=== PATIENT | female | born 1940 | race Caucasian/White ===

== ENCOUNTER → 2017-03-11 15:18 | Outpatient (CLI) | payer MEDICARE, BC ==
[2016-09-30 14:01] VITALS: BMI 23.9
[~2017-03-11 15:18] MED LIST: PRAVACHOL20 MG PO; PROTONIX40 MG PO; VITAMIN D10000 UNI1 PO; [UNRECOGNIZED DRUG - REMARK] PO
[2017-03-11 15:38] LABS: BASOPHILS 0.4 % (0-2); HEMATOCRIT 37.3 % (36.0-48.0); HEMOGLOBIN 12.4 g/dL (12-16); IMMATURE GRANULOCYTES 0.2 % (0-5); LYMPHOCYTES 36.8 % (15-50); MCH 29.2 pg (26.0-34.0); MCHC 33.2 g/dL (31.0-37.0); MEAN PLATELET VOLUME 9.8 fL (7.4-10.4); MONOCYTES 13.3 % (2-11); NEUTROPHILS 47.3 % (40-80); PLATELET COUNT 221 10x3/uL (130-400); RBC 4.24 10x6/uL (4.00-5.40); RDW 13.3 % (11.5-14.5); WBC 5.6 10x3/uL (4.8-10.8)
[2017-03-11 15:48] LABS: ANION GAP 8.6 mmol/L (8-16); CALCIUM 8.7 mg/dL (8.5-10.1); CARBON DIOXIDE 32.1 mmol/L (21.0-32.0); CREATININE - SERUM 1.3 mg/dL (0.6-1.3); POTASSIUM - SERUM 3.7 mmol/L (3.5-5.1)
== END | disposition home or self-care (01) ==
LOC: D.LAB 15:18
PROVIDERS: Urology
DX: N30.10 Interstitial cystitis (chronic) without hematuria (principal)

== ENCOUNTER → 2017-04-01 11:52 | Outpatient (CLI) | payer MEDICARE, BC ==
[~2017-04-01] VITALS: Ht 160 cm; Wt 58.6 kg
[~2017-04-01 11:52] MED LIST changes: +CIPRO500 MG PO; +SYNTHROID25 MCG PO
[2017-04-01 13:27] VITALS: BP 141/71; BMI 22.9
[2017-04-01 13:35] VITALS: BP 141/71; Ht 160 cm; Wt 58.6 kg
== END | disposition home or self-care (01) ==
LOC: D.OPS 11:52
DX: M81.0 Age-related osteoporosis without current pathological fracture (principal)

== ENCOUNTER 2017-04-02 05:47 | Day surgery (SDC) | payer MEDICARE, BC ==
[2017-04-01 13:21] LABS: HEMOGLOBIN 13.1 g/dL (12-16); MCH 29.4 pg (26.0-34.0); MCHC 33.6 g/dL (31.0-37.0); MCV 87.6 fL (80.0-100.0); MEAN PLATELET VOLUME 10.1 fL (7.4-10.4); RBC 4.45 10x6/uL (4.00-5.40); WBC 6.5 10x3/uL (4.8-10.8)
[~2017-04-02] VITALS: Ht 160 cm; Wt 59.4 kg
[~2017-04-02 05:47] MED LIST changes: -CIPRO500 MG PO
[2017-04-02] MEDS ORDERED: CIPRO500 MG PO (06:40)
[2017-04-02 06:41] VITALS: BP 178/89; Ht 160 cm; Wt 59.4 kg
--- NOTE | 2017-04-02 08:49 | NUR ---
0840--PT VOIDS WITHOUT DIFFICULTY, IV DC'D. SHONDA PEREA 0850--DISCHARGE INSTRUCTIONS GIVEN, PT VERBALIZES UNDERSTANDING. PT OFF UNIT VIA WC. SHONDA PEREA
--- NOTE | 2017-04-06 12:45 | OP ---
PATIENT NAME: RENEA MALONEY MEDICAL RECORD: [id number] :41 LOCATION:D.OPS ADMISSION DATE: SURGEON: RICARDO DAY MD DATE OF OPERATION: 04/02/2017 SURGEON: Rciardo Day MD ANESTHESIA: MAC by Tee Gonzalez CRNA. PREOPERATIVE DIAGNOSIS: Interstitial cystitis. FINDINGS: Single ureteral orifices bilaterally, no bladder tumors, diffuse bladder inflammation. PROCEDURES: Cystoscopy, intravesical Rimso instillation, Chiasma, lot #[id number]; expiration, October 2018. SPECIMENS: None. ESTIMATED BLOOD LOSS: None. CLINICAL HISTORY: This is a 76-year-old female with symptoms of urinary frequency, suprapubic pain and trigonal tenderness causing dyspareunia. She has tried Myrbetriq, which did not help her urinary frequency. Urine cultures have shown no bacterial growth. She comes now for cystoscopy to check for bladder inflammation. If inflammation is found, she will be started with Rimso, which is an anti-inflammatory. She was given Ancef 1 gram IV sales operations analyst to the OR. DESCRIPTION OF PROCEDURE: The patient was given IV sedation. She was placed in the dorsal lithotomy position and prepped and draped. A 21-Burkinan cystoscope with 30-degree lens was used for visualization. She has single ureteral orifices bilaterally. There are no bladder tumors seen. The bladder is mildly trabeculated and there was quite diffuse inflammation with prominent vascularity throughout. We then drained the bladder through the scope and removed the scope. A 16-Burkinan red rubber catheter was inserted and 50 mL of 50% Rimso solution was instilled into the bladder. The catheter was then removed, leaving the medication in the bladder. The patient will hold the medication for at least 15 minutes and then void it out. She will come back to the office next week to have the second treatment done in the office. TRANSINT:[id number] Voice Confirmation ID: [id number] DOCUMENT ID: [id number] RICARDO DAY MD at 1245 CC: [id number] DICTATION DATE: 04/02/17 0759 UNDERWRITING INTERNSHIP: 04/02/17 1642 [facility] 04/02/17 [place] [address]
== END 2017-04-02 08:45 | disposition home or self-care (01) ==
LOC: D.OPS 05:47 → D.PAN 07:30 → D.OPS 08:45
PROVIDERS: Anesthesiology
DX: N30.10 Interstitial cystitis (chronic) without hematuria (principal)

== ENCOUNTER → 2017-04-22 20:05 | Outpatient (CLI) | payer MEDICARE, BC ==
[2017-04-02 06:41] VITALS: BMI 23.2
[~2017-04-22 20:05] MED LIST changes: +CIPRO500 MG PO
[2017-04-22 20:37] LABS: APPEARANCE CLEAR (CLEAR); BILIRUBIN NEGATIVE (NEGATIVE); COLOR YELLOW (YELLOW); GLUCOSE NEGATIVE (NEGATIVE); KETONE NEGATIVE (NEGATIVE); LEUKOCYTE ESTERASE NEGATIVE (NEGATIVE); NITRITE NEGATIVE (NEGATIVE); PROTEIN NEGATIVE (NEGATIVE); UROBILINOGEN NORMAL (NORMAL)
== END | disposition home or self-care (01) ==
LOC: D.LABREF 20:05
PROVIDERS: Urology
DX: N39.0 Urinary tract infection, site not specified (principal)

== ENCOUNTER → 2017-06-26 17:31 | Outpatient (CLI) | payer MEDICARE, BC ==
[2017-04-02 06:41] VITALS: BMI 23.2
[2017-06-26 19:30] LABS: APPEARANCE CLEAR (CLEAR); BACTERIA FEW /hpf (NONE SEEN); BILIRUBIN NEGATIVE (NEGATIVE); COLOR YELLOW (YELLOW); GLUCOSE NEGATIVE (NEGATIVE); KETONE NEGATIVE (NEGATIVE); LEUKOCYTE ESTERASE TRACE (NEGATIVE); NITRITE NEGATIVE (NEGATIVE); PROTEIN NEGATIVE (NEGATIVE); RED CELLS - URINE OCC /hpf (0-5); UROBILINOGEN NORMAL (NORMAL); WHITE CELLS - URINE 0-5 /hpf (0-5)
== END | disposition home or self-care (01) ==
LOC: D.LABREF 17:31
PROVIDERS: Urology
DX: N39.0 Urinary tract infection, site not specified (principal)

== ENCOUNTER → 2017-08-14 19:54 | Outpatient (CLI) | payer MEDICARE, BC ==
[2017-04-02 06:41] VITALS: BMI 23.2
== END | disposition home or self-care (01) ==
LOC: D.LABREF 19:54
DX: N39.0 Urinary tract infection, site not specified (principal)

== ENCOUNTER → 2017-09-22 15:00 | Outpatient (CLI) | payer MEDICARE, BC ==
[2017-04-02 06:41] VITALS: BMI 23.2
== END | disposition home or self-care (01) ==
LOC: D.LABREF 15:00
DX: N39.0 Urinary tract infection, site not specified (principal)

== ENCOUNTER → 2017-10-09 19:53 | Outpatient (CLI) | payer MEDICARE, BC ==
[2017-04-02 06:41] VITALS: BMI 23.2
== END | disposition home or self-care (01) ==
LOC: D.LABREF 19:53
DX: N39.0 Urinary tract infection, site not specified (principal)

== ENCOUNTER → 2017-11-04 10:57 | Outpatient (CLI) | payer MEDICARE, BC ==
[~2017-11-04] VITALS: Ht 160 cm; Wt 58.2 kg
[2017-11-04 11:16] VITALS: BP 146/77; Ht 160 cm; Wt 58.2 kg
== END | disposition home or self-care (01) ==
LOC: D.OPS 10-06 11:00
DX: M81.0 Age-related osteoporosis without current pathological fracture (principal)

== ENCOUNTER → 2018-06-09 15:45 | Outpatient (CLI) | payer MEDICARE, BC ==
[~2018-06-09] VITALS: Ht 160 cm; Wt 56.8 kg
[2018-06-09 16:17] VITALS: BP 145/69; Ht 160 cm; Wt 56.8 kg
== END | disposition home or self-care (01) ==
LOC: D.OPS 04-07 13:00
DX: M81.0 Age-related osteoporosis without current pathological fracture (principal)

== ENCOUNTER 2018-09-02 05:20 | Day surgery (SDC) | payer MEDICARE, BC ==
[2018-08-31 11:01] LABS: HEMATOCRIT 36.5 % (36.0-48.0); HEMOGLOBIN 12.5 g/dL (12-16); MCH 29.5 pg (26.0-34.0); MCHC 34.2 g/dL (31.0-37.0); MCV 86.1 fL (80.0-100.0); MEAN PLATELET VOLUME 9.9 fL (7.4-10.4); RBC 4.24 10x6/uL (4.00-5.40); RDW 13.5 % (11.5-14.5); WBC 6.4 10x3/uL (4.8-10.8)
[2018-08-31 11:11] LABS: ANION GAP 10.8 mmol/L (8-16); CALCIUM 8.4 mg/dL (8.5-10.1); CARBON DIOXIDE 31.2 mmol/L (21.0-32.0); CREATININE - SERUM 0.9 mg/dL (0.6-1.3)
[~2018-09-02] VITALS: Ht 160 cm; Wt 58.1 kg
--- NOTE | ~2018-09-02 | OP ---
PATIENT NAME: RENEA MALONEY MEDICAL RECORD: [id number] :41 LOCATION:D.OPS ADMISSION DATE: SURGEON: SILVANO MULLEN MD DATE OF OPERATION: 09/02/2018 PREOPERATIVE DIAGNOSES: 1. Cyst in the cubital aspect of the left elbow. 2. Cubital tunnel syndrome. POSTOPERATIVE DIAGNOSES: 1. Cyst in the cubital aspect of the left elbow. 2. Cubital tunnel syndrome. PROCEDURES: 1. Excision of soft tissue cyst approximately 3 cm in diameter, solid. 2. Cubital tunnel release. SURGEON: Silvano Mullen MD ANESTHESIA: General. INTRAOPERATIVE COMPLICATIONS: None. 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 OPERATIVE SUMMARY IN DETAIL: After obtaining the appropriate preoperative orthopedic surgery consent as well as anesthetic consultation, evaluation and clearance, the patient was brought to operating room and placed on table in supine position. After adequate general laryngeal mask airway was administered, tourniquet was placed in the proximal aspect of left upper extremity. Left upper extremity was then prepped and draped in routine sterile fashion. Note, the tourniquet was not deployed during this case. Incision was made, taken down to the level of the cyst. Careful dissection, the ulnar nerve was identified prior to cyst excision and it was compressing the ulnar nerve. Gentle dissection was carried out to release the cyst from the nerve itself. This did not appear to be a neuroma; however, it was excised in its entirety without injury to the ulnar nerve. The ulnar nerve was then carefully exposed and a formal cubital tunnel release was performed to release the compression of the ulnar nerve. Transposition was not done. Wound was copiously irrigated and closed with 2-0 Vicryl followed by 4-0 Prolene in a running fashion. Sterile dressings were applied. Tourniquet was deflated. The patient was awakened and taken to recovery room in stable condition. All final needle and sponge counts were correct. TRANSINT:[id number] Voice Confirmation ID: [id number] DOCUMENT ID: [id number] OPERATIVE REPORT [id number] RENEA MALONEY MD, JAMES KEVIN at 1157 CC: [id number] DICTATION DATE: 09/10/18 1050 TEST DRIVER: 09/10/[address] [facility] 09/02/18 [id number] [place] [address]
[~2018-09-02 05:20] MED LIST changes: +PROLIA INJ 660 MG/M1 IJ; +TROSPIUM CHLORI20 MG PO
[2018-09-02 06:41] VITALS: BP 174/94; Ht 160 cm; Wt 58.1 kg
[2018-09-02] MEDS ORDERED: NORCO 10-325 TA1 TAB PO (08:54)
== END 2018-09-02 10:40 | disposition home or self-care (01) ==
LOC: D.OPS 05:20 → D.PAN 07:30 → D.OPS 08:45
PROVIDERS: Anesthesiology
DX: M25.822 Other specified joint disorders, left elbow (principal); G56.22 Lesion of ulnar nerve, left upper limb; Z01.812 Encounter for preprocedural laboratory examination

== ENCOUNTER 2018-12-14 13:18 | Outpatient (CLI) | payer MEDICARE, BC ==
[~2018-12-14] VITALS: Ht 160 cm; Wt 58.2 kg
[~2018-12-14 13:18] MED LIST changes: +NORCO 10-325 TA1 TAB PO
[2018-12-14 13:41] VITALS: BP 156/76; Ht 160 cm; Wt 58.2 kg
== END 2018-12-14 14:00 | disposition home or self-care (01) ==
LOC: D.OPS 13:18
DX: M81.0 Age-related osteoporosis without current pathological fracture (principal)

== ENCOUNTER 2019-06-14 12:35 | Outpatient (CLI) | payer MEDICARE, BC ==
[~2019-06-14] VITALS: Ht 160 cm; Wt 56.4 kg
[2019-06-14 13:58] VITALS: BP 163/83; Ht 160 cm; Wt 56.4 kg
[2019-06-24] MEDS ORDERED: LEVOTHYROXINE75 MCG PO (13:04)
[2019-06-24] MEDS ORDERED: PRAVASTATIN SOD10 MG PO (13:04)
== END 2019-06-14 14:02 | disposition home or self-care (01) ==
LOC: D.OPS 12:35
PROVIDERS: ATTEND Family Medicine
DX: M81.0 Age-related osteoporosis without current pathological fracture (principal)

== ENCOUNTER 2019-06-27 06:30 | Day surgery (SDC) | payer MEDICARE, BC ==
[2019-06-24 13:56] LABS: HEMOGLOBIN 12.4 g/dL (12-16); MCH 29.6 pg (26.0-34.0); MCHC 34.4 g/dL (31.0-37.0); MCV 85.9 fL (80.0-100.0); MEAN PLATELET VOLUME 9.3 fL (7.4-10.4); RBC 4.19 10x6/uL (4.00-5.40); RDW 13.8 % (11.5-14.5); WBC 7.2 10x3/uL (4.8-10.8)
[~2019-06-27] VITALS: Ht 160 cm; Wt 58.5 kg
[~2019-06-27 06:30] MED LIST changes: +LEVOTHYROXINE75 MCG PO; +PRAVASTATIN SOD10 MG PO
[2019-06-27 07:21] VITALS: BP 154/79; Ht 160 cm; Wt 58.5 kg
[2019-06-27] MEDS ORDERED: HYDROCODON-ACE1 EA10 PO (10:47)
--- NOTE | 2019-06-30 09:56 | OP ---
PATIENT NAME: RENEA MALONEY MEDICAL RECORD: [id number] :41 LOCATION:[facility] ADMISSION DATE: SURGEON: SILVANO MULLEN MD DATE OF OPERATION: 06/27/2019 PREOPERATIVE DIAGNOSES: 1. Ganglion cyst, right index finger PIP joint. 2. Ganglion cyst, right long finger MCP joint. POSTOPERATIVE DIAGNOSES: 1. Ganglion cyst, right index finger PIP joint. 2. Ganglion cyst, right long finger MCP joint. PROCEDURE: 1. Excision of ganglion cyst, right PIP joint. 2. Excision of ganglion cyst and osteophyte right long finger MCP joint. ANESTHESIA: General. INTRAOPERATIVE COMPLICATIONS: None. SUMMARY OF PATHOLOGIC FINDINGS: The patient had a ganglion cyst with a capsular ruptures as seen on both of these. The MCP joint had a very large prominent osteophyte that required removal. OPERATIVE SUMMARY IN DETAIL: After obtaining the appropriate preoperative orthopedic surgery consent as well as anesthetic consultation, evaluation and clearance, the patient was brought to the operating room and placed on the operating table in supine position. After general laryngeal mask airway was administered, tourniquet was placed on the proximal aspect of the right lower extremity. Right lower extremity was prepped and draped in routine sterile fashion. The leg was elevated and exsanguinated and tourniquet was inflated to 250 mmHg. Incision was first turned to the index finger PIP joint. Cyst incision was made transversely across the knuckles dissected around very carefully, sagittal bands were then gently reflected and required small incision for excellent visualization at the slip third interval. The ganglion cyst was removed in its entirety. The wound was copiously irrigated and then two 3-0 Vicryl sutures were utilized to reapproximate the very small aperture made in the dorsal cochran. Skin was then closed with 4-0 Prolene in routine interrupted fashion. The area was locally infiltrated with 0.25% Marcaine plain. Attention then turned to the MCP joint. Again, a transverse incision made over the MCP joint. This was taken down to the extensor mechanism, which was gently elevated. The entire periarticular ganglion cyst was removed exposing the large osteophyte on the ulnar side, this was taken down with a rongeur in its entirety. Again, the small aperture made in the dorsal cochran was reapproximated with 3-0 Vicryl. Skin was then closed with 4-0 Prolene in routine interrupted fashion. The area was locally infiltrated with 0.25% Marcaine plain. Sterile dressings were applied. Tourniquet was deflated. The patient was awakened and taken to recovery room in stable condition. All final needle and sponge counts were correct. TRANSINT:[id number] Voice Confirmation ID: [id number] DOCUMENT ID: [id number] OPERATIVE REPORT [id number] RENEA MALONEY MD, SILVANO VAZQUEZ at 0956 CC: [id number] DICTATION DATE: 06/28/19 162 [place]: 06/28/19 1740 [facility] 06/27/19 [facility] [address] [place] [address]
== END 2019-06-27 13:10 | disposition home or self-care (01) ==
LOC: D.OPS 06:30 → D.PAN 07:30 → D.OPS 08:45 → D.PAN 09:15 → D.OPS 13:10
PROVIDERS: Anesthesiology; ATTEND Orthopaedic Surgery
DX: M67.441 Ganglion, right hand (principal); Z01.812 Encounter for preprocedural laboratory examination

== ENCOUNTER 2020-01-04 10:46 | Outpatient (CLI) | payer MEDICARE, BC ==
[~2020-01-04] VITALS: Ht 160 cm; Wt 56.8 kg
[~2020-01-04 10:46] MED LIST changes: +HYDROCODON-ACE1 EA10 PO
[2020-01-04 10:58] VITALS: Ht 160 cm; Wt 56.8 kg
== END 2020-01-04 11:10 | disposition home or self-care (01) ==
LOC: D.OPS 10:46
PROVIDERS: ATTEND Family Medicine
DX: M81.0 Age-related osteoporosis without current pathological fracture (principal)

== ENCOUNTER → 2020-05-28 09:00 | Outpatient (CLI) | payer MEDICARE, BC ==
[2020-01-04 10:58] VITALS: BMI 22.1
== END | disposition home or self-care (01) ==
LOC: D.CT 09:00
PROVIDERS: ATTEND Family Medicine
DX: R04.2 Hemoptysis (principal)

== ENCOUNTER 2020-06-22 12:34 | Outpatient (CLI) | payer MEDICARE, BC ==
[~2020-06-22] VITALS: Ht 160 cm; Wt 59.1 kg
[2020-06-22 13:38] VITALS: BP 137/89; Ht 160 cm; Wt 59.1 kg
== END 2020-06-22 13:40 | disposition home or self-care (01) ==
LOC: D.OPS 12:34
PROVIDERS: ATTEND Family Medicine
DX: M81.0 Age-related osteoporosis without current pathological fracture (principal)